=== PATIENT | female | born 1970 | race Caucasian/White ===

== ENCOUNTER → 2018-11-23 | Day surgery (SDC) | payer OTHER ==
[~2018-11-23] MED LIST: FLUMAZENIL 0.5 MG/5 ML MDV IVP ONE; FLUMAZENIL 0.5 MG/5 ML MDV IVP PRN; IOPAMIDOL (ISOVUE-300) 100 ML BTL ONE; MIDAZOLAM 2 MG/2 ML VIAL IVP PRN; MIDAZOLAM 2 MG/2 ML VIAL ONE; NALOXONE HCL 0.4 MG/ML INJ IVP PRN; NALOXONE HCL 0.4 MG/ML INJ ONE; NS 1,000 ML IV SCH; ONDANSETRON 4 MG/2 ML VIAL IVP PRN; OXYCODONE/APAP 5/325 TAB PO PRN; fentaNYL 100 MCG/2 ML INJ IVP PRN; fentaNYL 100 MCG/2 ML INJ ONE
--- NOTE | 2018-11-23 13:07 | PDPROPOC ---
Sedation Plan of Care Sedation Plan of Care: vital signs stable, mental status noted, patient educated of risks, benefits, alternatives, patient can tolerate sedation ASA Classification: ASA 2 Planned drugs: fentanyl, midazolam Mallampati Score: Class 1 Mallampati Reference Image: Patient passed 3-3-2 rule?: Yes
--- NOTE | 2018-11-23 13:07 | PDHPUP ---
History & Physical Update H&P update statement: This history and physical update is based on an assessment of the patient which was completed after admission or registration (within 24 hours), but prior to the surgery/procedure. H&P update: H&P reviewed & patient examined, no change in patient's condition since H&P completed
[2018-11-23 13:48] VITALS: BP 93/55
--- NOTE | 2018-11-23 13:51 | PDCONSULT ---
[employer] Dispatcher Note: NEUROENDOVASCULAR resting well s/p angiogram AAOx3 strength full, sensation normal groin site c/d/i, no hematomat, pulses + s/p angiogram with 5mm right carotid cave/sup hypophyseal aneurysm - bedrest x 3 hours, then d/c home - clinic will call for followup Marilyn
== END | disposition home or self-care (01) ==
LOC: FIMAGING 11:28
PROVIDERS: ATTEND Neurological Surgery
DX: I67.1 Cerebral aneurysm, nonruptured (principal); F17.210 Nicotine dependence, cigarettes, uncomplicated; Z82.49 Family history of ischemic heart disease and other diseases of the circulatory system
CPT/HCPCS: 36224; 36225; 36226; 99152; C1769; C1894; C1760; J1644; J2250; J2310; J3010; Q9967

== ENCOUNTER 2018-12-14 11:05 | Inpatient (IN) | payer OTHER ==
[2018-12-14] MEDS ORDERED: IOPAMIDOL (ISOVUE-300) 100 ML BTL ONE (11:31)
[2018-12-14] MEDS ORDERED: NALOXONE HCL 0.4 MG/ML INJ IVP PRN ×2 (11:32→15:19)
[2018-12-14] MEDS ORDERED: FLUMAZENIL 0.5 MG/5 ML MDV IVP PRN (11:32)
[2018-12-14] MEDS ORDERED: MIDAZOLAM 2 MG/2 ML VIAL IVP PRN (11:32)
[2018-12-14] MEDS ORDERED: fentaNYL 100 MCG/2 ML INJ IVP PRN ×2 (11:32→15:19)
[2018-12-14] MEDS ORDERED: NS 1,000 ML IV SCH (11:45)
[2018-12-14] MEDS ORDERED: LIDOCAINE 1% 300 MG/30 ML SDV ONE (12:12)
[2018-12-14 12:36] LABS: INR 0.92 (0.83-1.16)
[2018-12-14] MEDS ORDERED: MIDAZOLAM 2 MG/2 ML VIAL IVP ONE (12:49)
--- NOTE | 2018-12-14 12:51 | PDANEPAE ---
ANE History of Present Illness cerebral embolization with pipeline ANE Past Medical History - Cardiovascular History Hx Hypertension: No Hx Arrhythmias: No Hx Chest Pain: No Hx Coronary Artery / Peripheral Vascular Disease: No Hx CHF / Valvular Disease: No Hx Palpitations: No - Pulmonary History Hx COPD: No Hx Asthma/Reactive Airway Disease: No Hx Recent Upper Respiratory Infection: No Hx Oxygen in Use at Home: No Hx Sleep Apnea: No Sleep Apnea Screening Result - Last Documented: Negative Pulmonary History Comment: bronchitis 10/05/2108 for 3 weeks. cleared up completely now. - Neurologic History Hx Cerebrovascular Accident: No Hx Seizures: No Hx Dementia: No Neurologic History Comment: possible small aneurysm in brain. here to check this out. - Endocrine History Hx Diabetes: No - Renal History Hx Renal Disorders: No - Liver History Hx Hepatic Disorders: No - Neurological & Psychiatric Hx Hx Neurological and Psychiatric Disorders: No - Cancer History Hx Cancer: No - Congenital Disorder History Hx Congenital Disorders: No - GI History Hx Gastrointestinal Disorders: Yes Gastrointestinal History Comment: gallbladder removed 5 years ago - Other Health History Other Health History: teeth implants snap in and out - Chronic Pain History Chronic Pain: No - Surgical History Prior Surgeries: Arthroscopic knee surg x 2. umbilical hernia repair. Gall Bladder removed. Hand surgery to repair tendon. pin in R arm from break as a child ANE Review of Systems Review of systems is: negative Review of Systems: - Exercise capacity METS (RN): 5 METS ANE Patient History - Allergies Allergies/Adverse Reactions: No Known Allergies Allergy (Verified 12/14/18 11:55) - Home Medications Home medications: home medication list seen and reviewed Home Medications: Aspirin [Aspirin 81mg (*)] 81 mg PO DAILY 12/06/18 [Last Taken Unknown] Clopidogrel Bisulfate [Plavix (*)] 75 mg PO DAILY 12/06/18 [Last Taken Unknown] Varenicline Tartrate [Chantix 0.5MG (*)] 0.5 mg PO DAILY 12/06/18 [Last Taken Unknown] - NPO status NPO Since - Liquids (Date): 12/14/18 NPO Since - Liquids (Time): 05:00 - Anes Hx Anes Hx: no prior problems - Smoking Hx Smoking Status: Heavy smoker - Family Anes Hx Family Anes Hx: none Family Hx Anesthesia Complications: none ANE Labs/Vital Signs - Labs Result Diagrams: 12/14/18 11:33 12/14/18 11:33 - Vital Signs Vital Signs: reviewed preoperatively; see RN documention for details Blood Pressure: 120/75 Heart Rate: 86 Respiratory Rate: 15 O2 Sat (%): 98 Height: 160.02 cm Weight: 64.41 kg ANE Physical Exam - Airway Neck exam: FROM Mallampati Score: Class 1 Mouth exam: dentures - Pulmonary Pulmonary: no respiratory distress - Cardiovascular Cardiovascular: regular rate and rhythym - ASA Status ASA Status: II ANE Anesthesia Plan Total IV Anesthesia: Yes
[2018-12-14] MEDS ORDERED: MIDAZOLAM 2 MG/2 ML VIAL ONE (12:56)
[2018-12-14] MEDS ORDERED: PROPOFOL/EMULSION 500 MG/50 ML BOTTLE IV ONE (13:02)
[2018-12-14] MEDS ORDERED: LIDOCAINE 2% 100 MG/5 ML SYR ONE (13:03)
[2018-12-14] MEDS ORDERED: ROCURONIUM 50 MG/5 ML VIAL ONE (13:09)
[2018-12-14] MEDS ORDERED: HEPARIN 10,000 UNIT/10 ML MDV (1,000 UNIT/ML) ONE (13:46)
[2018-12-14] MEDS ORDERED: VERAPAMIL 5 MG/2 ML VIAL ONE (13:46)
[2018-12-14] MEDS ORDERED: HEPARIN/DEXTROSE 25,000 UNIT/500 ML BAG ONE (14:28)
[2018-12-14] MEDS ORDERED: ONDANSETRON 4 MG/2 ML VIAL IVP PRN ×2 (15:08→15:19)
[2018-12-14] MEDS ORDERED: fentaNYL 100 MCG/2 ML INJ ONE (15:18)
[2018-12-14] MEDS ORDERED: DEXAMETHASONE 4 MG/ML VIAL IVP PRN (15:19)
[2018-12-14] MEDS ORDERED: oxyCODONE IR 5 MG TAB PO PRN (15:19)
[2018-12-14] MEDS ORDERED: ACETAMINOPHEN 500 MG TAB PO PRN (15:19)
[2018-12-14] MEDS ORDERED: HYDROmorphONE/DILAUDID 2 MG/ML INJ IVP PRN (15:19)
[2018-12-14] MEDS ORDERED: HYDROCODONE/APAP 5/325 TAB PO PRN (15:19)
[2018-12-14] MEDS ORDERED: PROMETHAZINE HCL 25 MG/ML INJ IVP PRN (15:19)
[2018-12-14] MEDS ORDERED: LABETALOL HCL 5 MG/ML 20 ML MDV IVP PRN (15:19)
[2018-12-14] MEDS ORDERED: MEPERIDINE 25 MG/0.5 ML AMP IVP PRN (15:19)
--- NOTE | 2018-12-14 15:21 | POSTANESTH ---
Post Anesthetic Evaluation Cardiovascular Status: Similar to Pre-Op Cond Respiratory Status: Similar to Pre-op Cond. Level of Consciousness/Mental Status: Can Participate in Eval, Mildly Sleepy, Arousable Pain Control: Adequate, Prn Tx Ordered Nausea/Vomiting Control: Adequate, Prn Tx Ordered Complications Possibly Related to Anesthesia: None Noted
--- NOTE | 2018-12-14 15:23 | POSTOPPROG ---
Post Op Note Date of Operation: 12/14/18 Surgeon: Luis Sanders Anesthesia: GET(General Endotracheal) Pre-op Diagnosis: Unruptured right ICA aneurysm Post-op Diagnosis: Unruptured right ICA aneurysm Procedure: Pipeline stent embolization of right ICA aneurysm Inf/Abcess present in the surg proc area at time of surgery?: No Depth: Organ Space EBL: Minimal Complications: Small carotid dissection SOAP Progress Note Assessment/Plan: Assessment: Plan: 12/14/18 15:24 S: Patient in PACU. Stable. O: NAD, VSS PERRL,EOMI CN II-XII grossly intact RAIMRES x 4 Right groin- no hematoma Incision c/d/i pulses intact BLE A: 48 yo female sp pipeline stent embolization of unruptured right ICA aneurysm. . During procedure there was small right carotid dissection. P: -Admit to SDU -Q2 hour neuro checks -lower extremity flat/o bending for 3 hours -SBP 90-140 -Heparin 100 units per hour overnight for carotid dissection. Pharmacy called and put order in for this -Continue ASA and Plavix daily -Will likely discharge home tomorrow on Asa and Plavix. She will continue Plavix for 6 months and ASA forever Objective: Vital Signs Temp Pulse Resp BP Pulse Ox 36.6 C 86 15 120/75 98 12/14/18 12:29 12/14/18 12:57 12/14/18 12:57 12/14/18 12:57 12/14/18 12:57 Laboratory Results 12/14/18 11:33 12/14/18 11:33 PT 12.0 SEC (12.0-15.0) 12/14/18 11:33 INR 0.92 (0.83-1.16) 12/14/18 11:33
[2018-12-14] MEDS ORDERED: niCARdipine/NACL 200 ML IV SCH (15:30)
[2018-12-14] MEDS ORDERED: HEPARIN 10,000 UNIT/10 ML MDV (1,000 UNIT/ML) IVP PRN (15:31)
[2018-12-14] MEDS ORDERED: HEPARIN/DEXTROSE 500 ML IV SCH ×2 (15:45)
--- NOTE | 2018-12-14 16:17 | PDMN ---
Medical Necessity Medical necessity: [facility] neurology- inpt only [id number] op: Pipeline stent embolization of R ICA aneurysm. - sm. R carotid dissection during procedure.
[2018-12-14] MEDS: OXYCODONE/APAP 5/325 TAB PO PRN ×3 (16:52→21:52)
[2018-12-15] MEDS: OXYCODONE/APAP 5/325 TAB PO PRN ×2 (03:36→09:27)
[2018-12-15 03:46] LABS: PLATELET COUNT 230 10^3/uL (150-400)
[2018-12-15 07:38] VITALS: BP 104/61
[2018-12-15] MEDS ORDERED: VARENICLINE TARTRATE 0.5 MG TAB PO SCH (09:00)
[2018-12-15] MEDS ORDERED: ASPIRIN 81 MG CHEWABLE TAB PO SCH (09:00)
[2018-12-15] MEDS ORDERED: CLOPIDOGREL BISULFATE 75 MG TAB PO SCH (09:00)
--- NOTE | 2018-12-15 09:48 | NEUSURGPN ---
Assessment/Plan: A: 48 yo female sp pipeline stent embolization of unruptured right ICA aneurysm. During procedure there was small right carotid dissection. P: -patient doing well this am, dispo planning -SBP 90-140 -d/c heparin gtt -Continue ASA and Plavix daily -Will likely discharge on Asa and Plavix. She will continue Plavix for 6 months and ASA forever -Discussed with Dr. Sanders Subjective: Denies any headache, nausea, dizziness Objective: NAD A&Ox3 MAEx4 5/5 and equal in BUE and BLE. CN II-XII grossly intact. Groin soft, no erythema or edema - Physician Discussed Patient with : Marilyn Neurosurgery Physical Exam - Vitals, I&O, Labs I and O 12/14/18 12/15/18 12/16/18 05:59 05:59 05:59 Intake Total 1861.8 Output Total 405 Balance 1456.8 Weight 64.41 kg Intake: Oral (ml) 825 IV Intake (ml) 961 IV Infused (ml) 75.8 Heparin/Dextrose 500 ml @ 75.8 2 mls/hr IV CONT NATHAN Rx# :[id number] Output: Urine (ml) 400 Catheter 400 Toilet 0 Estimated Blood Loss (ml) 5 Other: Number of Voids Toilet 3 Vital Signs Temp Pulse Resp BP Pulse Ox 36.6 C 84 12 104/61 95 12/14/18 15:37 12/15/18 07:37 12/15/18 07:37 12/15/18 07:37 12/15/18 07:37 Laboratory Results 12/15/18 03:35 12/14/18 11:33 ICD10 Worksheet Patient Problems: Problems Problem Status Onset Cerebral aneurysm Acute - ICD10 Problem Qualifiers (1) Cerebral aneurysm
== END 2018-12-15 10:06 | disposition home or self-care (01) | DRG 272 ==
LOC: F3N 11:05 → EDSTATUS 13:00 → F2N 16:07
PROVIDERS: ADMIT Neurological Surgery; ATTEND Neurological Surgery
PROC: 03LK3DZ Occlusion of Right Internal Carotid Artery with Intraluminal Device, Percutaneous Approach (ICD-10-PCS; principal; 2018-12-14 13:00)
DX: I72.0 Aneurysm of carotid artery (principal); F17.210 Nicotine dependence, cigarettes, uncomplicated; Z82.49 Family history of ischemic heart disease and other diseases of the circulatory system
CPT/HCPCS: 85520-90; C1760; C1769; C1893; J1644; J2001; J2250; J2704; J3010; Q9967